=== PATIENT | female | born 1995 | race Caucasian/White ===

== ENCOUNTER 2016-07-28 18:46 | Emergency (ER) | payer OTHER ==
[~2016-07-28] VITALS: Ht 170.2 cm; Wt 79.5 kg
[2016-07-28 18:49] VITALS: BP 132/83; PULSE 94; RESP 16; O2SAT 96
--- NOTE | 2016-07-28 19:10 | ED.REPORT ---
HPI-URI / Cough / Cold Date of Service Jul 28, 2016 ED Provider: Niall Delacruz DO A healthy 20 year old female presents to the ED reporting a productive cough with yellow sputum onset one month ago. The patient also reports a subjective fever, shortness of breath, and wheeze. She denies hemoptysis or other symptoms. Nursing Notes Stated Complaint: COUGH,WHEEZING Chief Complaint: Respiratory Complaints Nursing Notes Reviewed: Yes Allergies: Coded Allergies: No Known Allergies (Unverified , 07/28/16) General Time Seen by MD: 19:09 Chief Complaint Cough, productive... (Yellow) Hx Obtained From: Patient Arrived By: Walk-in Onset Occurred: More than a week ago... (1 month) Symptom Duration: Since onset Severity: Current: No pain currently Severity: Maximum: No pain Associated with: Reports: Fever (Subjective), Shortness of breath Pertinent Negative: Relieved by nothing Context: Immunization Status General: Unknown Recent Healthcare: No recent doctor visit Past Medical History Past Medical History None reported Past Surgical History None reported Smoking History Current Every Day Smoker Social History Other Social History: Good social support Ambulatory Status Independent Review of Systems Constitutional: Reports: Fever (Subjective) Respiratory: Reports: Prod cough, yellow, Shortness of breath, Wheezing, Denies: Hemoptysis GI: Denies: Diarrhea, Vomiting Complete sys rev & neg: except as marked. Physical Exam Initial Vital Signs Vital Signs (First) Date Time Temp Pulse Resp B/P Pulse Ox O2 Delivery O2 Flow Rate FiO2 07/28/16 18:49 36.6 94 16 132/83 96 Room Air Initial VS: Reviewed Head / Eyes: Atraumatic, Normocephalic Neck: Supple, Full range of motion Cardiovascular: Regular rate & rhythm, Heart sounds normal, Intact distal pulses Skin: Warm, Dry, No cyanosis Neurologic: Alert, Oriented, Nonfocal Psychiatric: Mood/affect normal, Behavior normal, Normal thought content General/Constitutional: Awake, Alert, No acute distress ENT: Airway patent, Mucous membranes moist Pharynx / Tonsils / Uvula: Positive: Tonsillar swelling L, Tonsillar swelling R Respiratory / Chest: Breath sounds = bilat, No respiratory distress Wheezing / Retractions: Positive: Wheezing expiratory (Bilateral) Rales / Rhonchi: Positive: Rhonchi coarse L, Rhonchi coarse R Interpretation & Diagnostics X-Ray Chest Interpretation Chest Xray Interpretation: IMPRESSION: No acute process. Dictated by: Jessica Martins M.D. on 07/28/2016 at 19:43 View: AP & lat Interpretation / Wet Read by: Interpret - Radiologist Re-Eval/Medical Decision Med Decision/Clinical Course Pulmonary emboli, rule out criteria met. No risk factors for DVT or pulmonary emboli. Was criteria low risk. With the pulmonary emboli criteria being met and low risk PE d-dimer not indicated. Bronchospasm with bronchitis is evident. Purulent sputum produced. Significant improvement after neb. Re-Evaluation/Progress : Time of Eval: 19:45 Patient Status: Condition improved Evaluation: Lungs clear Re-Evaluation/Progress Note: The patient is no longer actively coughing and is ready to go home. Discussed with patient x-ray results, diagnosis, and plan for discharge. Follow-up and return to the ER instructions given. Patient agrees with plan for care and all questions were addressed. Counseled Regarding: Diagnosis, Need for follow-up, When/why to return to ED Discharge & Departure Shift Change Sign-Out Response to Therapy: Improved Impression: Primary Impression: Acute bronchitis Bronchitis organism: unspecified organism Qualified Code: J20.9 - Acute bronchitis, unspecified Disposition: Home Discharge Condition All VS Reviewed: Yes Condition: Improved Patient Instructions: Acute Bronchitis (ED), Asthma (ED) Additional Instructions: Your chest x-ray was normal. I strongly recommend that you stop smoking. I suspect that you have acute bronchitis with bronchospasm. Albuterol 2 puffs every 3-4 hours as needed for cough and wheeze. Prednisone daily for 3 more days. Zithromax Z-Jason. Recheck with your primary care physician at the conclusion of the Z-Jason. Return to the emergency department if you have any problems or any worsening symptoms. Be seen right away if you develop any chest pain, shortness of breath, or cough up any blood. Referrals: [facility] Scribe Attestation Portions of this note were transcribed by Sommer Martines. I, Dr. Delacruz, personally performed the history, physical exam, and medical decision-making; I reviewed and confirmed the accuracy of the information in the transcribed note. Signed by: Mely Erickson, 07/28/2016, 19:59 copies to: [facility] Niall Delacruz DO Jul 28, 2016 19:10 SOMMER MARTINES 8, 2017 19:18
[2016-07-28] MEDS ORDERED: Albuterol HFA 60 Puff 8 Gm Inhaler INHALATION PRN (19:15)
[2016-07-28] MEDS ORDERED: Albuterol-Ipratropium 3 mL Inhalation Solution NEB ONE (19:15)
[2016-07-28] MEDS ORDERED: predniSONE 20 mg Tablet PO ONE (19:15)
[2016-07-28 19:31] VITALS: PULSE 90; RESP 16; O2SAT 100
--- NOTE | 2016-07-28 19:45 | DRSVH ---
PROCEDURE: X-RAY CHEST, TWO VIEWS ([id number]) INDICATIONS: cough TECHNIQUE: 2 views of the chest were acquired. COMPARISON: None. FINDINGS: Surgical changes and devices: None. Lungs and pleura: No pleural effusions or pneumothorax. Lungs are clear. Mediastinum: Mediastinal contours are normal. Heart size is normal. Bones and chest wall: No suspicious bony abnormalities. Soft tissues appear unremarkable. IMPRESSION: No acute process. Dictated by: Jessica Martisn M.D. on 07/28/2016 at 19:43 Approved by: Jessica Martins M.D. on 07/28/2016 at 19:44
[2016-07-28 20:00] VITALS: BP 129/77; PULSE 87; RESP 16; O2SAT 98
== END 2016-07-28 20:02 | disposition home or self-care (01) ==
LOC: SED 18:48
DX: J20.9 Acute bronchitis, unspecified (principal); F17.200 Nicotine dependence, unspecified, uncomplicated
CPT/HCPCS: 71020; 99284; J7620